=== PATIENT | male | born 1995 | race Caucasian/White ===

== ENCOUNTER 2018-09-18 09:29 | Day surgery (SDC) | payer BC ==
[~2018-09-18] VITALS: Ht 180.3 cm; Wt 84.4 kg
[~2018-09-18 09:29] MED LIST: CETI-36 PO; DOXY-350 PO; LIDOCAINE 1% MDV 20ML VIAL SQ PRN; LIDOCAINE W/EPINEPHRINE 1% 20ML VIAL As Ordered ONE; LR 1,000 ML IV ONE; METHYLENE BLUE 0.5% (5MG/ML) 10 ML AMP (PROVAYBLUE)(Q9968 PER 1MG) As Ordered ONE; OXYMETAZOLINE NASAL SPRAY (AFRIN) As Ordered ONE; PERCOCET PO
[2018-09-18] MEDS ORDERED: MIDAZOLAM INJ 2 MG/2 ML VIAL (J2250) As Ordered ONE (10:55)
[2018-09-18] MEDS ORDERED: SUCCINYLCHOLINE 100 MG/5 ML SYRINGE (J0330) As Ordered ONE (10:55)
[2018-09-18] MEDS ORDERED: ONDANSETRON 4MG/2ML VIAL (J2405) As Ordered ONE (10:55)
[2018-09-18] MEDS ORDERED: fentaNYL 100 MCG/2 ML INJECTION (J3010) As Ordered ONE ×2 (10:55→12:24)
[2018-09-18] MEDS ORDERED: dexameTHASONE 4 MG/ML 1ML VIAL (J1100) As Ordered ONE ×2 (10:55→11:45)
[2018-09-18] MEDS ORDERED: PROPOFOL 200 MG/20 ML VIAL As Ordered ONE (10:55)
[2018-09-18] MEDS ORDERED: ROCURONIUM BROMIDE 50 MG/5 ML VIAL As Ordered ONE (10:55)
[2018-09-18] MEDS ORDERED: LIDOCAINE 2% INJ 100 MG/5 ML SDV (FOR ANES.) As Ordered ONE (10:56)
[2018-09-18] MEDS: fentaNYL 100 MCG/2 ML INJECTION (J3010) IV PRN ×4 (12:24→12:40)
[2018-09-18] MEDS ORDERED: METOCLOPRAMIDE INJ 10MG/2ML VIAL (J2765) IV PRN (12:30)
[2018-09-18] MEDS ORDERED: LR 1,000 ML IV SCH (12:30)
[2018-09-18] MEDS ORDERED: oxyCODONE 5MG TAB PO PRN (12:30)
[2018-09-18] MEDS ORDERED: PROMETHAZINE INJ 25 MG/ML VIAL (J2550) IV PRN (12:30)
[2018-09-18] MEDS ORDERED: PERCOCET 5MG/325MG TAB PO PRN (12:30)
[2018-09-18 14:37] VITALS: BP 121/78
== END 2018-09-18 14:45 | disposition home or self-care (01) ==
LOC: M SDC 09:29
PROVIDERS: ATTEND Specialist
DX: J34.3 Hypertrophy of nasal turbinates (principal)
CPT/HCPCS: 30140; J0330; J1100; J2250; J2405; J2765; J3010; Q9968

== ENCOUNTER 2019-03-28 20:35 | Inpatient (IN) | payer BC ==
[~2019-03-28] VITALS: Ht 180.3 cm; Wt 74.0 kg
[~2019-03-28 20:35] MED LIST changes: -LIDOCAINE 1% MDV 20ML VIAL SQ PRN; -LIDOCAINE W/EPINEPHRINE 1% 20ML VIAL As Ordered ONE; -LR 1,000 ML IV ONE; -METHYLENE BLUE 0.5% (5MG/ML) 10 ML AMP (PROVAYBLUE)(Q9968 PER 1MG) As Ordered ONE; -OXYMETAZOLINE NASAL SPRAY (AFRIN) As Ordered ONE
[2019-03-28] MEDS ORDERED: HYDR50TA70 (20:58)
[2019-03-28] MEDS ORDERED: QUET1TAB7 (20:58)
[2019-03-28] MEDS ORDERED: HYDR50TA70 PO (23:08)
[2019-03-28] MEDS ORDERED: QUET1TAB7 PO (23:08)
[2019-03-29] MEDS ORDERED: MAALOX 30 ML SUSP *UDC PO PRN (00:30)
[2019-03-29] MEDS ORDERED: ACETAMINOPHEN TAB 650MG DOSE (2X325MG) PO PRN (00:30)
[2019-03-29] MEDS ORDERED: hydrOXYzine 50 MG TAB PO PRN (00:30)
[2019-03-29] MEDS ORDERED: MOM 30ML SUSPENSION UDC PO PRN (00:30)
[2019-03-29] MEDS: QUEtiapine FUMARATE 25 MG TAB PO SCH ×2 (04:00→21:22)
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
[2019-03-29] MEDS ORDERED: VENLAFAXINE **XR** 37.5 MG CAPSULE PO ONE (12:30)
[2019-03-29] MEDS ORDERED: QUEtiapine FUMARATE 100 MG TAB PO PRN (12:30)
[2019-03-29 15:55] VITALS: BP 136/72
[2019-03-30 06:45] VITALS: BP 131/78
[2019-03-30] MEDS: VENLAFAXINE **XR** 37.5 MG CAPSULE PO SCH (09:01)
--- NOTE | 2019-03-30 10:35 | MHIPNPDOC ---
[facility] Progress Note Progress Note DATE OF SERVICE: 03/30/19 HISTORY: Per ED- Patient is a 23 -year-old , male, who stated that his primary issue is anxiety that evolves into depression. He went almost two years without issue but since Dec 2018 he has been pursuing treatment without success. 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 PT attempted to utilize [facility] counselor "He is really no good at what he does." Pt found a counselor in [place] but on his second visit he expressed SI and the therapist told him he could not think that or he would go to [facility]. Pt stated he was seen twice at [facility] while at school with one admission and one discharge because they did not have a bed. He admitted to having his father's gun in his hand at one time prior to college, planning suicide- "That was a long time ago." He denies that he reported the event until just recently. Pt and his girlfriend have been dating for 8 months and she is very supportive of pt. Today he shared with her that he wanted to kill himself and had a plan. Pt did not tell his GF the plan and he stated at this time he will not share the plan with anyone. GF encouraged him to present to the ED for help. Pt has been prescribed Seroquel 25 mg recently with the plan to increase to 100 mg- pt stated it caused him muscle aches and interrupted sleep. He was unable to access the doctor at his school as it was their break so he consulted his PCP who declined to be involved with a psychiatric medication. PT stated that upon starting Seroquel he developed AH/VH that typically occurred when he was attempting to sleep but he is not concerned as he understands "it isn't real." Pt seen in his room and states that he "is okay but I was not able to sleep because of the noise." Pt appears tired, anxious, and withdrawn. When asked about if he still has SI he states yes. He was not forthcoming in the ED about a plan but he disclosed to me that he planned to jump off a specific high building that he does not know the name to. Pt expresses that his anxiety has been getting worst the past 4 months and that is when he began to seek help. He stated that the counselor at [facility] "was not helpful at all." Pt states that he went to [facility] twice when he had previously expressed SI and that they had started him on Klonopin- which was helpful but was unable to get refilled, and Effexor- which he was only on for 3 weeks before he could not refill his prescription. He was able to see the psychiatrist at [facility], Dr Mcclendon, who prescribed him Seroquel 75 mg qhs and Hydroxyzine 100 mg tid. He states that Hydroxyzine has not been particularly helpful with his anxiety and if he does take three in a day it makes him very tired. Pt states that the Seroquel has on occasion caused him "auditory and visual hallucinations"- he sees "little people" running around the room but doesn't want to be taken off it b/c it really helps him sleep and is very anxious about not being able to sleep. Recommend restarting Effexor XR as pt would like the try again as never had a full trial of the med and only took for 3wks. Recommended to start abilify 5mg daily for antidepressant augmentation. Recommend starting different medications. Med risk/ benefits discussed. States he was unable to sleep last night and asked for ear plugs. He is willing to try different medications " as long as he has a stable plan and it helps with his anxiety." He is encouraged to attend groups but it is doubtful he will be able to leave his room due to his current level of anxiety. He denies SI/HI, hallucinations, and delusions. Pt feels safe here. VITAL SIGNS: See below. NEW TEST RESULTS:See below. CURRENT MEDICATIONS: See below. MENTAL STATUS EXAMINATION: General Appearance: unkempt, hospital scrubs/clothing Build: thin Demeanor: cooperative Eye Contact: fair Activity: less anxious Behavior: cooperative Speech: clear, normal volume, reg/rate,rhythm,volume Mood: less anxious, less depressed Mood "alright" Affect: constricted, congruent, less anxious Thought Process: logical/linear, associative, depressed Thought Content (Delusions): none reported, denies SI, HI, AVH Thought Content (Other): none reported, preoccupied, obsessional Thought Content (Aggressive): none reported Perception (Hallucinations): none reported Perception (Other): none reported Cognition (Impairment of): none reported Cognition(Intelligence Est.): average Oriented: Awake, Alert, Oriented times three Insight: poor Judgment: Fair Psychosis: Denies DIAGNOSES: Generalized anxiety disorder Panic disorder ASSESSMENT:Pt seen and states that his mood is "ok". States he slept well last night. Endorsed minor stomach upset with start of abilify and effexor xr and encouraged to take them with food as that should improve it. States he's waiting for them to feel more beneficial as thus far doesn't notice anything. He is attending groups and finding them helpful. He appears less anxious today. He denies SI/HI, hallucinations, delusions. Pt feels safe here. MANAGEMENT PLAN: continue plan Effexor xr 37.5mg daily abilify 5mg daily seroquel 75mg qhs TIME SPENT: 30 minutes. Vital Signs Vital Signs Date Time Temp Pulse Resp B/P (MAP) Pulse Ox O2 Delivery O2 Flow Rate FiO2 03/30/19 06:45 98.6 94 12 131/78 (95) Room Air 03/28/19 21:24 100 Current Medications Current Medications Medications (Trade) Dose Ordered Sig/Jamie Route PRN Reason Start Time Stop Time Status Last Admin Dose Admin Acetaminophen (Tylenol Tab) 650 mg Q6HP PRN PO HEADACHE or DISCOMFORT 03/29/19 00:30 Al Hydrox/Mg Hydrox/Simethicone (Mylanta) 30 ml Q4HP PRN PO HEARTBURN/INDIGESTION 03/29/19 00:30 Aripiprazole (AbiLIFY) 5 mg DAILY PO 03/30/19 09:00 03/30/19 09:01 Home Med (Med Rec Complete!) ASDIRECTED XX 03/28/19 23:15 03/28/19 23:11 DC Hydroxyzine HCl (Atarax) 50 mg TID PRN PO ANXIETY 03/29/19 00:30 Cancel Magnesium Hydroxide (Milk Of Magnesia) 30 ml DAILYPRN PRN PO CONSTIPATION 03/29/19 00:30 Quetiapine Fumarate (SEROquel) 75 mg QHS PO 03/28/19 21:00 03/29/19 21:22 Quetiapine Fumarate (SEROquel) 100 mg TIDP PRN PO ANXIETY 03/29/19 12:30 Trazodone HCl (Desyrel) 50 mg QHSP PRN PO INSOMNIA 03/29/19 00:30 Venlafaxine HCl (Effexor Xr) 37.5 mg DAILY PO 03/30/19 09:00 03/30/19 09:01 Allergies Coded Allergies: Cephalosporins (Verified Allergy, Intermediate, HIVES, 09/18/18) Animal Dander (Verified Allergy, Unknown, 09/11/18) ENVIROMENTAL (Verified Allergy, Unknown, 09/11/18) PORFIRIO REA DO Mar 30, 2019 10:35 am
[2019-03-30] MEDS: hydrOXYzine 50 MG TAB PO PRN ×2 (16:09→20:32)
[2019-03-30 16:57] VITALS: BP 126/67
[2019-03-30] MEDS: QUEtiapine FUMARATE 25 MG TAB PO SCH (20:32)
[2019-03-30] MEDS: traZODone 50 MG TAB PO PRN (23:47)
[2019-03-31 06:45] VITALS: BP 133/79
[2019-03-31] MEDS: VENLAFAXINE **XR** 37.5 MG CAPSULE PO SCH (08:04)
--- NOTE | 2019-03-31 10:12 | MHIPNPDOC ---
[facility] Progress Note Progress Note DATE OF SERVICE: 03/31/19 HISTORY: Per ED- Patient is a 23 -year-old , male, who stated that his primary issue is anxiety that evolves into depression. He went almost two years without issue but since Dec 2018 he has been pursuing treatment without success. 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 PT attempted to utilize [facility] counselor "He is really no good at what he does." Pt found a counselor in [place] but on his second visit he expressed SI and the therapist told him he could not think that or he would go to [facility]. Pt stated he was seen twice at [facility] while at school with one admission and one discharge because they did not have a bed. He admitted to having his father's gun in his hand at one time prior to college, planning suicide- "That was a long time ago." He denies that he reported the event until just recently. Pt and his girlfriend have been dating for 8 months and she is very supportive of pt. Today he shared with her that he wanted to kill himself and had a plan. Pt did not tell his GF the plan and he stated at this time he will not share the plan with anyone. GF encouraged him to present to the ED for help. Pt has been prescribed Seroquel 25 mg recently with the plan to increase to 100 mg- pt stated it caused him muscle aches and interrupted sleep. He was unable to access the doctor at his school as it was their break so he consulted his PCP who declined to be involved with a psychiatric medication. PT stated that upon starting Seroquel he developed AH/VH that typically occurred when he was attempting to sleep but he is not concerned as he understands "it isn't real." Pt seen in his room and states that he "is okay but I was not able to sleep because of the noise." Pt appears tired, anxious, and withdrawn. When asked about if he still has SI he states yes. He was not forthcoming in the ED about a plan but he disclosed to me that he planned to jump off a specific high building that he does not know the name to. Pt expresses that his anxiety has been getting worst the past 4 months and that is when he began to seek help. He stated that the counselor at [facility] "was not helpful at all." Pt states that he went to [facility] twice when he had previously expressed SI and that they had started him on Klonopin- which was helpful but was unable to get refilled, and Effexor- which he was only on for 3 weeks before he could not refill his prescription. He was able to see the psychiatrist at [facility], Dr Mcclendon, who prescribed him Seroquel 75 mg qhs and Hydroxyzine 100 mg tid. He states that Hydroxyzine has not been particularly helpful with his anxiety and if he does take three in a day it makes him very tired. Pt states that the Seroquel has on occasion caused him "auditory and visual hallucinations"- he sees "little people" running around the room but doesn't want to be taken off it b/c it really helps him sleep and is very anxious about not being able to sleep. Recommend restarting Effexor XR as pt would like the try again as never had a full trial of the med and only took for 3wks. Recommended to start abilify 5mg daily for antidepressant augmentation. Recommend starting different medications. Med risk/ benefits discussed. States he was unable to sleep last night and asked for ear plugs. He is willing to try different medications " as long as he has a stable plan and it helps with his anxiety." He is encouraged to attend groups but it is doubtful he will be able to leave his room due to his current level of anxiety. He denies SI/HI, hallucinations, and delusions. Pt feels safe here. VITAL SIGNS: See below. NEW TEST RESULTS:See below. CURRENT MEDICATIONS: See below. MENTAL STATUS EXAMINATION: General Appearance: unkempt, hospital scrubs/clothing Build: thin Demeanor: cooperative Eye Contact: fair Activity: less anxious Behavior: cooperative Speech: clear, normal volume, reg/rate,rhythm,volume Mood: less anxious, less depressed Mood "alright" Affect: less constricted, congruent, less anxious Thought Process: logical/linear, associative/intrusive thoughts, less depressed Thought Content (Delusions): none reported, denies SI, HI, AVH Thought Content (Other): none reported, preoccupied, obsessional Thought Content (Aggressive): none reported Perception (Hallucinations): none reported Perception (Other): none reported Cognition (Impairment of): none reported Cognition(Intelligence Est.): average Oriented: Awake, Alert, Oriented times three Insight: poor Judgment: Fair Psychosis: Denies DIAGNOSES: Generalized anxiety disorder Panic disorder ASSESSMENT:Pt seen and states that his mood is "alright". States he slept well last night. States he tolerating his abilify and effexor xr better when taken with food and is waiting for them to feel more beneficial as thus far only notices minor improvement in mood and anxiety. He is attending groups and finding them helpful. He appears less anxious today. Continues to endorse intrusive thoughts that are improving with groups attendance. He is social on the milieu with his peers. Per nursing pt appears to be improving overall. He denies SI/HI, hallucinations, delusions. Pt feels safe here. MANAGEMENT PLAN: continue plan Effexor xr 37.5mg daily abilify 5mg daily seroquel 75mg qhs TIME SPENT: 30 minutes. Vital Signs Vital Signs Date Time Temp Pulse Resp B/P (MAP) Pulse Ox O2 Delivery O2 Flow Rate FiO2 03/31/19 06:45 98.3 84 12 133/79 (97) Room Air 03/28/19 21:24 100 Current Medications Current Medications Medications (Trade) Dose Ordered Sig/Jamie Route PRN Reason Start Time Stop Time Status Last Admin Dose Admin Acetaminophen (Tylenol Tab) 650 mg Q6HP PRN PO HEADACHE or DISCOMFORT 03/29/19 00:30 Al Hydrox/Mg Hydrox/Simethicone (Mylanta) 30 ml Q4HP PRN PO HEARTBURN/INDIGESTION 03/29/19 00:30 Aripiprazole (AbiLIFY) 5 mg DAILY PO 03/30/19 09:00 03/31/19 08:03 Home Med (Med Rec Complete!) ASDIRECTED XX 03/28/19 23:15 03/28/19 23:11 DC Hydroxyzine HCl (Atarax) 50 mg Q4HP PRN PO ANXIETY 03/30/19 16:00 03/30/19 20:32 Hydroxyzine HCl (Atarax) 50 mg TID PRN PO ANXIETY 03/29/19 00:30 Cancel Magnesium Hydroxide (Milk Of Magnesia) 30 ml DAILYPRN PRN PO CONSTIPATION 03/29/19 00:30 Quetiapine Fumarate (SEROquel) 75 mg QHS PO 03/28/19 21:00 03/30/19 20:32 Quetiapine Fumarate (SEROquel) 100 mg TIDP PRN PO ANXIETY 03/29/19 12:30 Trazodone HCl (Desyrel) 50 mg QHSP PRN PO INSOMNIA 03/29/19 00:30 03/30/19 23:47 Venlafaxine HCl (Effexor Xr) 37.5 mg DAILY PO 03/30/19 09:00 03/31/19 08:04 Allergies Coded Allergies: Cephalosporins (Verified Allergy, Intermediate, HIVES, 09/18/18) Animal Dander (Verified Allergy, Unknown, 09/11/18) ENVIROMENTAL (Verified Allergy, Unknown, 09/11/18) PORFIRIO REA DO Mar 31, 2019 10:12
[2019-03-31 16:20] VITALS: BP 129/63
[2019-03-31] MEDS: hydrOXYzine 50 MG TAB PO PRN (17:03)
[2019-03-31] MEDS: QUEtiapine FUMARATE 25 MG TAB PO SCH (20:56)
[2019-04-01 06:51] VITALS: BP 132/83
[2019-04-01] MEDS: VENLAFAXINE **XR** 37.5 MG CAPSULE PO SCH (08:52)
[2019-04-01] MEDS ORDERED: QUEtiapine FUMARATE 25 MG TAB PO PRN (10:00)
--- NOTE | 2019-04-01 10:02 | MHIPNPDOC ---
[facility] Progress Note Progress Note DATE OF SERVICE: 04/01/19 HISTORY: Per ED- Patient is a 23 -year-old , male, who stated that his primary issue is anxiety that evolves into depression. He went almost two years without issue but since Dec 2018 he has been pursuing treatment without success. 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 PT attempted to utilize [facility] counselor "He is really no good at what he does." Pt found a counselor in [place] but on his second visit he expressed SI and the therapist told him he could not think that or he would go to [facility]. Pt stated he was seen twice at [facility] while at school with one admission and one discharge because they did not have a bed. He admitted to having his father's gun in his hand at one time prior to college, planning suicide- "That was a long time ago." He denies that he reported the event until just recently. Pt and his girlfriend have been dating for 8 months and she is very supportive of pt. Today he shared with her that he wanted to kill himself and had a plan. Pt did not tell his GF the plan and he stated at this time he will not share the plan with anyone. GF encouraged him to present to the ED for help. Pt has been prescribed Seroquel 25 mg recently with the plan to increase to 100 mg- pt stated it caused him muscle aches and interrupted sleep. He was unable to access the doctor at his school as it was their break so he consulted his PCP who declined to be involved with a psychiatric medication. PT stated that upon starting Seroquel he developed AH/VH that typically occurred when he was attempting to sleep but he is not concerned as he understands "it isn't real." Pt seen in his room and states that he "is okay but I was not able to sleep because of the noise." Pt appears tired, anxious, and withdrawn. When asked about if he still has SI he states yes. He was not forthcoming in the ED about a plan but he disclosed to me that he planned to jump off a specific high building that he does not know the name to. Pt expresses that his anxiety has been getting worst the past 4 months and that is when he began to seek help. He stated that the counselor at [facility] "was not helpful at all." Pt states that he went to [facility] twice when he had previously expressed SI and that they had started him on Klonopin- which was helpful but was unable to get refilled, and Effexor- which he was only on for 3 weeks before he could not refill his prescription. He was able to see the psychiatrist at [facility], Dr Mcclendon, who prescribed him Seroquel 75 mg qhs and Hydroxyzine 100 mg tid. He states that Hydroxyzine has not been particularly helpful with his anxiety and if he does take three in a day it makes him very tired. Pt states that the Seroquel has on occasion caused him "auditory and visual hallucinations"- he sees "little people" running around the room but doesn't want to be taken off it b/c it really helps him sleep and is very anxious about not being able to sleep. Recommend restarting Effexor XR as pt would like the try again as never had a full trial of the med and only took for 3wks. Recommended to start abilify 5mg daily for antidepressant augmentation. Recommend starting different medications. Med risk/ benefits discussed. States he was unable to sleep last night and asked for ear plugs. He is willing to try different medications " as long as he has a stable plan and it helps with his anxiety." He is encouraged to attend groups but it is doubtful he will be able to leave his room due to his current level of anxiety. He denies SI/HI, hallucinations, and delusions. Pt feels safe here. VITAL SIGNS: See below. NEW TEST RESULTS:See below. CURRENT MEDICATIONS: See below. MENTAL STATUS EXAMINATION: General Appearance: unkempt, hospital scrubs/clothing Build: thin Demeanor: cooperative Eye Contact: fair Activity: less anxious Behavior: cooperative Speech: clear, normal volume, reg/rate,rhythm,volume Mood: less anxious, less depressed Mood "I fear I'm going to get really sick" Affect: less constricted, congruent, less anxious Thought Process: logical/linear, associative/intrusive thoughts, less depressed Thought Content (Delusions): none reported, denies SI, HI, AVH Thought Content (Other): none reported, preoccupied, obsessional Thought Content (Aggressive): none reported Perception (Hallucinations): none reported Perception (Other): none reported Cognition (Impairment of): none reported Cognition(Intelligence Est.): average Oriented: Awake, Alert, Oriented times three Insight: poor Judgment: Fair Psychosis: Denies DIAGNOSES: Generalized anxiety disorder Panic disorder ASSESSMENT:Pt seen and states that his mood is "alright". States he slept well last night. States he tolerating his abilify and effexor xr but feels abilify is causing him stomach aches and would prefer to take it at night. Continues to endorse fear of harming himself due to anxiety which he continues to endorse due to concern about his health and relationships. States effexor xr is starting to be beneficial. He is attending groups and finding them helpful. He continues to indorse irrational thoughts that he knows are not rational that he'll get a serious illness.. Continues to endorse intrusive thoughts that are improving mildly with groups attendance. He is social on the milieu with his peers. Per nursing pt appears to be improving overall. He denies SI/HI, hallucinations, delusions. Pt feels safe here. MANAGEMENT PLAN: continue plan Effexor xr 37.5mg daily abilify 5mg qhs seroquel 75mg qhs prn insomnia trazodone 50mg qhs prn insomnia vistaril 100mg p6hr prn anxiety TIME SPENT: 30 minutes. Vital Signs Vital Signs Date Time Temp Pulse Resp B/P (MAP) Pulse Ox O2 Delivery O2 Flow Rate FiO2 04/01/19 06:51 98.1 90 12 132/83 (99) Room Air 03/28/19 21:24 100 Current Medications Current Medications Medications (Trade) Dose Ordered Sig/Jamie Route PRN Reason Start Time Stop Time Status Last Admin Dose Admin Acetaminophen (Tylenol Tab) 650 mg Q6HP PRN PO HEADACHE or DISCOMFORT 03/29/19 00:30 Al Hydrox/Mg Hydrox/Simethicone (Mylanta) 30 ml Q4HP PRN PO HEARTBURN/INDIGESTION 03/29/19 00:30 Aripiprazole (AbiLIFY) 5 mg DAILY PO 03/30/19 09:00 04/01/19 08:52 Home Med (Med Rec Complete!) ASDIRECTED XX 03/28/19 23:15 03/28/19 23:11 DC Hydroxyzine HCl (Atarax) 50 mg Q4HP PRN PO ANXIETY 03/30/19 16:00 03/31/19 17:03 Hydroxyzine HCl (Atarax) 50 mg TID PRN PO ANXIETY 03/29/19 00:30 Cancel Magnesium Hydroxide (Milk Of Magnesia) 30 ml DAILYPRN PRN PO CONSTIPATION 03/29/19 00:30 Quetiapine Fumarate (SEROquel) 75 mg QHS PO 03/28/19 21:00 03/31/19 20:56 Quetiapine Fumarate (SEROquel) 100 mg TIDP PRN PO ANXIETY 03/29/19 12:30 Trazodone HCl (Desyrel) 50 mg QHSP PRN PO INSOMNIA 03/29/19 00:30 03/30/19 23:47 Venlafaxine HCl (Effexor Xr) 37.5 mg DAILY PO 03/30/19 09:00 04/01/19 08:52 Allergies Coded Allergies: Cephalosporins (Verified Allergy, Intermediate, HIVES, 09/18/18) Animal Dander (Verified Allergy, Unknown, 09/11/18) ENVIROMENTAL (Verified Allergy, Unknown, 09/11/18) PORFIRIO REA DO Apr 01, 2019 9:36 am
[2019-04-01 17:05] VITALS: BP 128/72
[2019-04-01] MEDS: traZODone 50 MG TAB PO PRN (20:56)
[2019-04-02] MEDS: hydrOXYzine 50 MG TAB PO PRN (04:22)
[2019-04-02 07:10] VITALS: BP 140/67
[2019-04-02] MEDS: VENLAFAXINE **XR** 37.5 MG CAPSULE PO SCH (09:22)
--- NOTE | 2019-04-02 09:33 | MHIPNPDOC ---
[facility] Progress Note Progress Note DATE OF SERVICE: 04/02/19 HISTORY: Per ED- Patient is a 23 -year-old , male, who stated that his primary issue is anxiety that evolves into depression. He went almost two years without issue but since Dec 2018 he has been pursuing treatment without success. 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 PT attempted to utilize [facility] counselor "He is really no good at what he does." Pt found a counselor in [place] but on his second visit he expressed SI and the therapist told him he could not think that or he would go to [facility]. Pt stated he was seen twice at [facility] while at school with one admission and one discharge because they did not have a bed. He admitted to having his father's gun in his hand at one time prior to college, planning suicide- "That was a long time ago." He denies that he reported the event until just recently. Pt and his girlfriend have been dating for 8 months and she is very supportive of pt. Today he shared with her that he wanted to kill himself and had a plan. Pt did not tell his GF the plan and he stated at this time he will not share the plan with anyone. GF encouraged him to present to the ED for help. Pt has been prescribed Seroquel 25 mg recently with the plan to increase to 100 mg- pt stated it caused him muscle aches and interrupted sleep. He was unable to access the doctor at his school as it was their break so he consulted his PCP who declined to be involved with a psychiatric medication. PT stated that upon starting Seroquel he developed AH/VH that typically occurred when he was attempting to sleep but he is not concerned as he understands "it isn't real." Pt seen in his room and states that he "is okay but I was not able to sleep because of the noise." Pt appears tired, anxious, and withdrawn. When asked about if he still has SI he states yes. He was not forthcoming in the ED about a plan but he disclosed to me that he planned to jump off a specific high building that he does not know the name to. Pt expresses that his anxiety has been getting worst the past 4 months and that is when he began to seek help. He stated that the counselor at [facility] "was not helpful at all." Pt states that he went to [facility] twice when he had previously expressed SI and that they had started him on Klonopin- which was helpful but was unable to get refilled, and Effexor- which he was only on for 3 weeks before he could not refill his prescription. He was able to see the psychiatrist at [facility], Dr Mcclendon, who prescribed him Seroquel 75 mg qhs and Hydroxyzine 100 mg tid. He states that Hydroxyzine has not been particularly helpful with his anxiety and if he does take three in a day it makes him very tired. Pt states that the Seroquel has on occasion caused him "auditory and visual hallucinations"- he sees "little people" running around the room but doesn't want to be taken off it b/c it really helps him sleep and is very anxious about not being able to sleep. Recommend restarting Effexor XR as pt would like the try again as never had a full trial of the med and only took for 3wks. Recommended to start abilify 5mg daily for antidepressant augmentation. Recommend starting different medications. Med risk/ benefits discussed. States he was unable to sleep last night and asked for ear plugs. He is willing to try different medications " as long as he has a stable plan and it helps with his anxiety." He is encouraged to attend groups but it is doubtful he will be able to leave his room due to his current level of anxiety. He denies SI/HI, hallucinations, and delusions. Pt feels safe here. VITAL SIGNS: See below. NEW TEST RESULTS:See below. CURRENT MEDICATIONS: See below. MENTAL STATUS EXAMINATION: General Appearance: unkempt, hospital scrubs/clothing Build: thin Demeanor: cooperative, mildly withdrawn Eye Contact: fair Activity: less anxious Behavior: cooperative Speech: clear, normal volume, reg/rate,rhythm,volume Mood: less anxious, less depressed Mood "tired" Affect: less constricted, congruent, less anxious Thought Process: logical/linear, improving associative/intrusive thoughts, less depressed Thought Content (Delusions): none reported, denies SI, HI, AVH Thought Content (Other): none reported, improving preoccupation and obsessional thoughts Thought Content (Aggressive): none reported Perception (Hallucinations): none reported Perception (Other): none reported Cognition (Impairment of): none reported Cognition(Intelligence Est.): average Oriented: Awake, Alert, Oriented times three Insight: poor Judgment: Fair Psychosis: Denies DIAGNOSES: Generalized anxiety disorder Panic disorder ASSESSMENT:Pt seen and states that his mood is "tired". States he slept he took trazodone last night but that it wasn't very helpful and is agreeable to increasing it today. States he tolerating his abilify now that it's at night and effexor xr state stomach aches are gone. Denies fear of harming himself today b/c "I feel much more confident now that he has set up [facility] in [place]". States effexor xr is starting to be beneficial and is agreeable to increasing it today. He is attending groups and finding them helpful. He states his irrational thoughts are easier to dismiss them although they are still present. States intrusive thoughts are improving as easier to push away with groups attendance. He is social on the milieu with his peers. Per nursing pt appears to be improving overall. He denies SI/HI, hallucinations, delusions. Pt feels safe here. MANAGEMENT PLAN: continue plan. increase trazodone for insomnia. increased effexor xr 75mg daily Effexor xr 75mg daily abilify 5mg qhs seroquel 75mg qhs prn insomnia trazodone 100mg qhs prn insomnia vistaril 100mg p6hr prn anxiety TIME SPENT: 30 minutes. Vital Signs Vital Signs Date Time Temp Pulse Resp B/P (MAP) Pulse Ox O2 Delivery O2 Flow Rate FiO2 04/02/19 07:10 98.2 65 18 140/67 (91) 04/01/19 06:51 Room Air 03/28/19 21:24 100 Current Medications Current Medications Medications (Trade) Dose Ordered Sig/Jamie Route PRN Reason Start Time Stop Time Status Last Admin Dose Admin Acetaminophen (Tylenol Tab) 650 mg Q6HP PRN PO HEADACHE or DISCOMFORT 03/29/19 00:30 Al Hydrox/Mg Hydrox/Simethicone (Mylanta) 30 ml Q4HP PRN PO HEARTBURN/INDIGESTION 03/29/19 00:30 Aripiprazole (AbiLIFY) 5 mg DAILY PO 03/30/19 09:00 04/01/19 08:52 Home Med (Med Rec Complete!) ASDIRECTED XX 03/28/19 23:15 03/28/19 23:11 DC Hydroxyzine HCl (Atarax) 50 mg Q4HP PRN PO ANXIETY 03/30/19 16:00 04/01/19 10:01 DC 03/31/19 17:03 Hydroxyzine HCl (Atarax) 50 mg TID PRN PO ANXIETY 03/29/19 00:30 Cancel Hydroxyzine HCl (Atarax) 100 mg Q6HP PRN PO ANXIETY 04/01/19 10:00 04/02/19 04:22 Magnesium Hydroxide (Milk Of Magnesia) 30 ml DAILYPRN PRN PO CONSTIPATION 03/29/19 00:30 Quetiapine Fumarate (SEROquel) 75 mg QHS PO 03/28/19 21:00 04/01/19 10:01 DC 03/31/19 20:56 Quetiapine Fumarate (SEROquel) 75 mg QHS PRN PO INSOMNIA 04/01/19 10:00 Quetiapine Fumarate (SEROquel) 100 mg TIDP PRN PO ANXIETY 03/29/19 12:30 Cancel Trazodone HCl (Desyrel) 50 mg QHSP PRN PO INSOMNIA 03/29/19 00:30 04/01/19 20:56 Venlafaxine HCl (Effexor Xr) 37.5 mg DAILY PO 03/30/19 09:00 04/01/19 08:52 Allergies Coded Allergies: Cephalosporins (Verified Allergy, Intermediate, HIVES, 09/18/18) Animal Dander (Verified Allergy, Unknown, 09/11/18) ENVIROMENTAL (Verified Allergy, Unknown, 09/11/18) PORFIRIO REA DO Apr 02, 2019 9:33 am
[2019-04-02] MEDS ORDERED: VENLAFAXINE **XR** 37.5 MG CAPSULE PO ONE (09:45)
[2019-04-02] MEDS ORDERED: traZODone 100 MG TAB PO PRN (09:45)
[2019-04-02 15:50] VITALS: BP 129/79
[2019-04-03 06:39] VITALS: BP 108/61
[2019-04-03] MEDS: VENLAFAXINE **XR** 75MG CAPSULE PO SCH (07:46)
--- NOTE | 2019-04-03 09:03 | MHIPNPDOC ---
[facility] Progress Note Progress Note DATE OF SERVICE: 04/03/19 HISTORY: Per ED- Patient is a 23 -year-old , male, who stated that his primary issue is anxiety that evolves into depression. He went almost two years without issue but since Dec 2018 he has been pursuing treatment without success. 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 PT attempted to utilize [facility] counselor "He is really no good at what he does." Pt found a counselor in [place] but on his second visit he expressed SI and the therapist told him he could not think that or he would go to [facility]. Pt stated he was seen twice at [facility] while at school with one admission and one discharge because they did not have a bed. He admitted to having his father's gun in his hand at one time prior to college, planning suicide- "That was a long time ago." He denies that he reported the event until just recently. Pt and his girlfriend have been dating for 8 months and she is very supportive of pt. Today he shared with her that he wanted to kill himself and had a plan. Pt did not tell his GF the plan and he stated at this time he will not share the plan with anyone. GF encouraged him to present to the ED for help. Pt has been prescribed Seroquel 25 mg recently with the plan to increase to 100 mg- pt stated it caused him muscle aches and interrupted sleep. He was unable to access the doctor at his school as it was their break so he consulted his PCP who declined to be involved with a psychiatric medication. PT stated that upon starting Seroquel he developed AH/VH that typically occurred when he was attempting to sleep but he is not concerned as he understands "it isn't real." Pt seen in his room and states that he "is okay but I was not able to sleep because of the noise." Pt appears tired, anxious, and withdrawn. When asked about if he still has SI he states yes. He was not forthcoming in the ED about a plan but he disclosed to me that he planned to jump off a specific high building that he does not know the name to. Pt expresses that his anxiety has been getting worst the past 4 months and that is when he began to seek help. He stated that the counselor at [facility] "was not helpful at all." Pt states that he went to [facility] twice when he had previously expressed SI and that they had started him on Klonopin- which was helpful but was unable to get refilled, and Effexor- which he was only on for 3 weeks before he could not refill his prescription. He was able to see the psychiatrist at [facility], Dr Mcclendon, who prescribed him Seroquel 75 mg qhs and Hydroxyzine 100 mg tid. He states that Hydroxyzine has not been particularly helpful with his anxiety and if he does take three in a day it makes him very tired. Pt states that the Seroquel has on occasion caused him "auditory and visual hallucinations"- he sees "little people" running around the room but doesn't want to be taken off it b/c it really helps him sleep and is very anxious about not being able to sleep. Recommend restarting Effexor XR as pt would like the try again as never had a full trial of the med and only took for 3wks. Recommended to start abilify 5mg daily for antidepressant augmentation. Recommend starting different medications. Med risk/ benefits discussed. States he was unable to sleep last night and asked for ear plugs. He is willing to try different medications " as long as he has a stable plan and it helps with his anxiety." He is encouraged to attend groups but it is doubtful he will be able to leave his room due to his current level of anxiety. He denies SI/HI, hallucinations, and delusions. Pt feels safe here. VITAL SIGNS: See below. NEW TEST RESULTS:See below. CURRENT MEDICATIONS: See below. MENTAL STATUS EXAMINATION: General Appearance: unkempt, hospital scrubs/clothing Build: thin Demeanor: cooperative, mildly withdrawn Eye Contact: fair Activity: less anxious Behavior: cooperative Speech: clear, normal volume, reg/rate,rhythm,volume Mood: less anxious, less depressed Mood "very tired" Affect: less constricted, congruent, less anxious Thought Process: logical/linear, improving associative/intrusive thoughts, less depressed Thought Content (Delusions): none reported, denies SI, HI, AVH Thought Content (Other): none reported, improving preoccupation and obsessional thoughts Thought Content (Aggressive): none reported Perception (Hallucinations): none reported Perception (Other): none reported Cognition (Impairment of): none reported Cognition(Intelligence Est.): average Oriented: Awake, Alert, Oriented times three Insight: poor Judgment: Fair Psychosis: Denies DIAGNOSES: Generalized anxiety disorder Panic disorder ASSESSMENT:Pt seen and states that his mood is "very tired" after being moved to a room with a roommate as states he is a light sleeper and anytime his roommate moved he would wake up. States he slept he took increased trazodone last night but it wasn't helpful regarding him staying asleep. States he would like to try remeron for insomnia after discussed medication for sleep with pt to help him stay asleep. States he tolerating his abilify now that it's at night and effexor xr state stomach aches are gone. Denies fear of harming himself still after PHP set up in [place] upon d/c. States effexor xr is still starting to be beneficial and is agreeable even after increase yesterday. He is attending groups and finding them helpful. Continues to state his irrational thoughts are easier to dismiss although they are still present. States intrusive thoughts are improving as easier to push away with group attendance. He is social on the milieu with his peers. Per nursing pt appears to be improving overall. He denies SI/HI, hallucinations, delusions. Pt feels safe here. MANAGEMENT PLAN: continue plan. remeron for insomnia, d/c seroquel. increased effexor xr 75mg daily Effexor xr 75mg daily abilify 5mg qhs remeron 15mg qhs trazodone 100mg qhs prn insomnia vistaril 100mg p6hr prn anxiety TIME SPENT: 30 minutes. Vital Signs Vital Signs Date Time Temp Pulse Resp B/P (MAP) Pulse Ox O2 Delivery O2 Flow Rate FiO2 04/03/19 06:39 98.1 78 12 108/61 (77) 04/01/19 06:51 Room Air 03/28/19 21:24 100 Current Medications Current Medications Medications (Trade) Dose Ordered Sig/Jamie Route PRN Reason Start Time Stop Time Status Last Admin Dose Admin Acetaminophen (Tylenol Tab) 650 mg Q6HP PRN PO HEADACHE or DISCOMFORT 03/29/19 00:30 Al Hydrox/Mg Hydrox/Simethicone (Mylanta) 30 ml Q4HP PRN PO HEARTBURN/INDIGESTION 03/29/19 00:30 Aripiprazole (AbiLIFY) 5 mg DAILY PO 03/30/19 09:00 04/02/19 10:25 DC 04/01/19 08:52 Aripiprazole (AbiLIFY) 5 mg QHS PO 04/02/19 21:00 04/02/19 21:43 Home Med (Med Rec Complete!) ASDIRECTED XX 03/28/19 23:15 03/28/19 23:11 DC Hydroxyzine HCl (Atarax) 50 mg Q4HP PRN PO ANXIETY 03/30/19 16:00 04/01/19 10:01 DC 03/31/19 17:03 Hydroxyzine HCl (Atarax) 50 mg TID PRN PO ANXIETY 03/29/19 00:30 Cancel Hydroxyzine HCl (Atarax) 100 mg Q6HP PRN PO ANXIETY 04/01/19 10:00 04/02/19 04:22 Magnesium Hydroxide (Milk Of Magnesia) 30 ml DAILYPRN PRN PO CONSTIPATION 03/29/19 00:30 Quetiapine Fumarate (SEROquel) 75 mg QHS PO 03/28/19 21:00 04/01/19 10:01 DC 03/31/19 20:56 Quetiapine Fumarate (SEROquel) 75 mg QHS PRN PO INSOMNIA 04/01/19 10:00 Quetiapine Fumarate (SEROquel) 100 mg TIDP PRN PO ANXIETY 03/29/19 12:30 Cancel Trazodone HCl (Desyrel) 50 mg QHSP PRN PO INSOMNIA 03/29/19 00:30 04/02/19 09:33 DC 04/01/19 20:56 Trazodone HCl (Desyrel) 100 mg QHSP PRN PO INSOMNIA 04/02/19 09:45 04/02/19 21:43 Venlafaxine HCl (Effexor Xr) 37.5 mg DAILY PO 03/30/19 09:00 04/02/19 09:33 DC 04/02/19 09:22 Venlafaxine HCl (Effexor Xr) 75 mg DAILY PO 04/03/19 09:00 04/03/19 07:46 Allergies Coded Allergies: Cephalosporins (Verified Allergy, Intermediate, HIVES, 09/18/18) Animal Dander (Verified Allergy, Unknown, 09/11/18) ENVIROMENTAL (Verified Allergy, Unknown, 09/11/18) PORFIRIO REA DO Apr 03, 2019 8:48 am
[2019-04-03 17:19] VITALS: BP 108/52
[2019-04-03] MEDS ORDERED: MIRTAZAPINE 15 MG TAB PO SCH (21:00)
[2019-04-04] MEDS: hydrOXYzine 50 MG TAB PO PRN (02:21)
[2019-04-04 06:03] VITALS: BP 113/64
[2019-04-04] MEDS: VENLAFAXINE **XR** 75MG CAPSULE PO SCH (08:06)
[2019-04-04] MEDS ORDERED: TRAZ-257 PO (09:16)
[2019-04-04] MEDS ORDERED: ABIL1TAB11 PO (09:16)
[2019-04-04] MEDS ORDERED: VENL75CA47 PO (09:16)
[2019-04-04] MEDS ORDERED: HYDR50TA70 PO (09:16)
[2019-04-04] MEDS ORDERED: REME15TA PO (09:16)
--- NOTE | 2019-04-04 09:17 | MHDSPDOC ---
[facility] Discharge Summary Discharge Summary DATE OF ADMISSION: Mar 29, 2019 at 12:23 am DATE OF DISCHARGE: Apr 04, 2019 DISCHARGE DIAGNOSES: Generalized anxiety disorder Panic disorder REASON FOR ADMISSION: Patient is a 23 -year-old , male, who stated that his primary issue is anxiety that evolves into depression. He went almost two y ears without issue but since Dec 2018 he has been pursuing treatment without success. 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 PT attempted to utilize [facility] counselor "He is really no good at what he does." Pt found a counselor in [place] but on his second visit he expressed SI and the therapist told him he could not think that or he would go to [facility]. Pt stated he was seen twice at [facility] while at school with one admission and one discharge because they did not have a bed. He admitted to having his father's gun in his hand at one time prior to college, planning suicide- "That was a long time ago." He denies that he reported the event until just recently. Pt and his girlfriend have been dating for 8 months and she is very supportive of pt. Today he shared with her that he wanted to kill himself and had a plan. Pt did not tell his GF the plan and he stated at this time he will not share the plan with anyone. GF encouraged him to present to the ED for help. Pt has been prescribed Seroquel 25 mg recently with the plan to increase to 100 mg- pt stated it caused him muscle aches and interrupted sleep. He was unable to access the doctor at his school as it was their break so he consulted his PCP who declined to be involved with a psychiatric medication. PT stated that upon starting Seroquel he developed AH/VH that typically occurred when he was attempting to sleep but he is not concerned as he understands "it isn't real." Pt seen in his room and states that he "is okay but I was not able to sleep because of the noise." Pt appears tired, anxious, and withdrawn. When asked about if he still has SI he states yes. He was not forthcoming in the ED about a plan but he disclosed to me that he planned to jump off a specific high building that he does not know the name to. Pt expresses that his anxiety has been getting worst the past 4 months and that is when he began to seek help. He stated that the counselor at [facility] "was not helpful at all." Pt states that he went to [facility] twice when he had previously expressed SI and that they had started him on Klonopin- which was helpful but was unable to get refilled, and Effexor- which he was only on for 3 weeks before he could not refill his prescription. He was able to see the psychiatrist at [facility], Dr Mcclendon, who prescribed him Seroquel 75 mg qhs and Hydroxyzine 100 mg tid. He states that Hydroxyzine has not been particularly helpful with his anxiety and if he does take three in a day it makes him very tired. Pt states that the Seroquel has on occasion caused him "auditory and visual hallucinations"- he sees "little people" running around the room but doesn't want to be taken off it b/c it really helps him sleep and is very anxious about not being able to sleep. Recommend restarting Effexor XR as pt would like the try again as never had a full trial of the med and only took for 3wks. Recommended to start abilify 5mg daily for antidepressant augmentation. Recommend starting different medications. Med risk/ benefits discussed. States he was unable to sleep last night and asked for ear plugs. He is willing to try different medications " as long as he has a stable plan and it helps with his anxiety." He is encouraged to attend groups but it is doubtful he will be able to leave his room due to his current level of anxiety. He denies SI/HI, hallucinations, and delusions. Pt feels safe here. CONSULTANTS INVOLVED: none TREATMENT AND PROGRESS ON THE UNIT : Pt was admitted to [facility], seen for psychiatric assessment and started on effexor xr increased to 75mg daily and abilify 5mg qhs, and remeron 15mg qhs for sleep. He was provided vistaril 100mg tid prn anxiety and trazodone 100mg qhs prn insomnia. Pt found his medications beneficial and tolerated them well. His mood, anxiety, and intrusive thoughts improved with treatment. He attended groups daily during his stay. His symptoms improved with treatment. On day of discharge he denied depression, anxiety, insomnia, SI/HI, hallucinations, delusions. He was discharged home with follow-up at [facility] in [place]. He felt safe for discharge. DISCHARGE ASSESSMENT: Pt seen and states that his mood is "good" and he's looking forward to [facility] [place] and following-up at [facility] in [place] tomorrow. States he slept well with remeron last night and is tolerating it well. States he tolerating his abilify now that it's at night and effexor xr as his stomach aches are gone. Denies fear of harming himself still after [facility] set up in [place] upon d/c. States effexor xr is beneficial and he's tolerating it well. He is attending groups and finding them helpful. Continues to state his irrational and intrusive thoughts are easier to dismiss and are greatly improved from admission. He is social on the milieu with his peers. Per nursing pt appears to be improving overall. He denies depression, anxiety, insomnia, SI/HI, hallucinations, delusions. Pt feels safe to d/c home today. MENTAL STATUS EXAMINATION ON DISCHARGE: General Appearance: clean, hospital scrubs/clothing Build: thin Demeanor: cooperative Eye Contact: good Activity: average Behavior: cooperative Speech: clear, normal volume, reg/rate,rhythm,volume Mood: euthymic, full range Mood "good" Affect: full range, congruent Thought Process: logical/linear Thought Content (Delusions): none reported, denies SI, HI, AVH Thought Content (Other): none reported Thought Content (Aggressive): none reported Perception (Hallucinations): none reported Perception (Other): none reported Cognition (Impairment of): none reported Cognition(Intelligence Est.): average Oriented: Awake, Alert, Oriented times three Insight: good Judgment: good Psychosis: Denies MEDICATIONS ON DISCHARGE: Effexor xr 75mg daily abilify 5mg qhs remeron 15mg qhs trazodone 100mg qhs prn insomnia vistaril 100mg tid prn anxiety PLAN/FOLLOWUP ARRANGEMENTS: D/c home with follow-up at [facility] in [place]. The amount of time spent in the coordination of care for this patient was approximately 30 minutes. Vital Signs/I&Os Vital Signs Date Time Temp Pulse Resp B/P (MAP) Pulse Ox O2 Delivery O2 Flow Rate FiO2 04/04/19 06:03 97.0 93 18 113/64 (80) 04/01/19 06:51 Room Air Medications Scheduled Quetiapine Fumarate (Quetiapine Fumarate) 25 Mg Tablet, 75 MG PO QHS, (Reported) Scheduled PRN Hydroxyzine HCl (Hydroxyzine HCl) 50 Mg Tablet, 50 MG PO TID PRN for ANXIETY, (Reported) MAY TAKE A SECOND TABLET FOR EACH DOSE IF NEEDED Allergies Coded Allergies: Cephalosporins (Verified Allergy, Intermediate, HIVES, 09/18/18) Animal Dander (Verified Allergy, Unknown, 09/11/18) ENVIROMENTAL (Verified Allergy, Unknown, 09/11/18) PORFIRIO REA DO Apr 04, 2019 9:17 am
== END 2019-04-04 12:15 | disposition home or self-care (01) | DRG 756 ==
LOC: M ED 20:35 → M ED INP 03-29 00:23 → M PSY 03-29 03:04
PROVIDERS: ADMIT Psychiatry & Neurology Psychiatry; ATTEND Psychiatry & Neurology Psychiatry
DX: F41.0 Panic disorder [episodic paroxysmal anxiety] (principal); Z88.8 Allergy status to other drugs, medicaments and biological substances

== ENCOUNTER 2020-10-19 10:45 | Inpatient (IN) | payer BC ==
[~2020-10-19] VITALS: Ht 180.3 cm; Wt 77.7 kg
[~2020-10-19 10:45] MED LIST changes: +ABIL1TAB11 PO; +HYDR50TA70; +HYDR50TA70 PO; +MIRT-62 PO; +QUET25TA3; +QUET25TA3 PO; +TRAZ-257 PO; +VENL75CA47 PO
[2020-10-19] MEDS ORDERED: BUSP15TA47 PO ×2 (12:40→12:55)
[2020-10-19] MEDS ORDERED: ARIP1TAB6 PO (12:55)
[2020-10-19] MEDS ORDERED: MIRT-62 PO (12:55)
[2020-10-19] MEDS ORDERED: OMEGCAP4 PO (12:57)
[2020-10-19] MEDS ORDERED: VITMTA PO (12:57)
[2020-10-19] MEDS ORDERED: MELA5CAP2 PO (12:57)
[2020-10-19] MEDS ORDERED: HOME MED LIST COMPLETE! XX SCH (13:00)
[2020-10-19 13:22] LABS: HEMATOCRIT 49.6 % (42.0-52.0); HEMOGLOBIN 16.8 g/dl (13.5-17.5); MEAN CORPUSCULAR HEMOGLOBIN 28.5 pg (27.0-33.0); MEAN CORPUSCULAR HGB CONC 33.9 g/dl (32.0-36.5); MEAN CORPUSCULAR VOLUME 84.2 fl (80.0-96.0); PLATELET COUNT, AUTOMATED 276 10^3/uL (150-450); RED BLOOD COUNT 5.89 10^6/uL (4.30-6.10); WHITE BLOOD COUNT 6.3 10^3/uL (4.0-10.0)
[2020-10-19 13:45] LABS: AMPHETAMINES LEVEL URINE NEGATIVE (NEGATIVE); BARBITURATES URINE NEGATIVE (NEGATIVE); BENZODIAZEPINES URINE NEGATIVE (NEGATIVE); CANNABINOIDS URINE NEGATIVE (NEGATIVE); COCAINE METABOLITE URINE NEGATIVE (NEGATIVE); METHADONE URINE NEGATIVE (NEGATIVE); OPIATES URINE NEGATIVE (NEGATIVE); PHENCYCLIDINE URINE NEGATIVE (NEGATIVE)
[2020-10-19 13:58] LABS: ACETAMINOPHEN LEVEL < 2.0 UG/ML (10.0-30.0); ALT/SGPT 23 U/L (12-78); BILIRUBIN,DIRECT 0.2 MG/DL (0.0-0.2); BILIRUBIN,TOTAL 0.8 MG/DL (0.2-1.0); BLOOD UREA NITROGEN 14 MG/DL (7-18); CALCIUM LEVEL 9.7 MG/DL (8.5-10.1); CARBON DIOXIDE LEVEL 29 MEQ/L (21-32); CHLORIDE LEVEL 104 MEQ/L (98-107); CREATININE FOR GFR 1.08 MG/DL (0.70-1.30); ETHYL ALCOHOL (ETHANOL) < 0.003 % (0.000-0.010); GLOMERULAR FILTRATION RATE > 60.0 (>60); GLUCOSE, FASTING 96 MG/DL (70-100); POTASSIUM SERUM 3.6 MEQ/L (3.5-5.1); SALICYLATE LEVEL < 1.7 MG/DL (5.0-30.0); SODIUM LEVEL 141 MEQ/L (136-145); TOTAL PROTEIN 8.4 GM/DL (6.4-8.2)
[2020-10-19 14:02] LABS: RSV AMPLIFICATION NEGATIVE (NEGATIVE)
[2020-10-19] MEDS ORDERED: MAALOX 30 ML SUSP *UDC PO PRN (16:50)
[2020-10-19] MEDS ORDERED: ACETAMINOPHEN TAB 650MG DOSE (2X325MG) PO PRN (16:50)
[2020-10-19] MEDS ORDERED: MOM 30ML SUSPENSION UDC PO PRN (16:50)
[2020-10-19 19:01] VITALS: BP 110/80
[2020-10-19 19:33] VITALS: BP 130/68
[2020-10-19] MEDS: MIRTAZAPINE 15 MG TAB PO SCH (21:34)
[2020-10-19] MEDS: busPIRone 5 MG TAB PO SCH (21:34)
[2020-10-20 07:26] VITALS: BP 99/51
[2020-10-20] MEDS: MULTIVITAMINS/MINERALS THERAP 1 TAB PO SCH (08:28)
[2020-10-20] MEDS: busPIRone 5 MG TAB PO SCH ×2 (08:28→21:16)
[2020-10-20] MEDS: OMEGA-3 1000MG CAPSULE PO SCH (11:18)
--- NOTE | 2020-10-20 14:14 | MHHPEPDOC ---
General Date Of Admission: Oct 19, 2020 Legal Status: 9.39 Chief Complaint "I was seeing a new therapist and said that I had thoughts in the past about killing myself." History of Present Illness HISTORY OF THE PRESENT ILLNESS: Patient is a 25 -year-old Single, Employed, , male, who was sent to the ED after he had asked a question about suicidality which triggered further evaluation. He states that "there was a miscommunication with the therapist. Basically she had asked about suicidal thoughts and I had suicidal thoughts a couple of weeks ago, and this is where there was miscommunication. I was here in Mar 2019 for suicidal and intent and plan, I checked myself in, she asked me the plan and I said that my plan will probably the same as in March but I had no intent to harm myself then or no. I didn't have an intent, I said that was my last plan. I wasn't clear and there w as no time to clear it up." He denies that he has any intent to self-harm. His last plan of self harm was to use a gun. Patient has no guns that he owns but has access to his father's guns. Parent was called about this revelation.. Patient initially does not want his father called regarding this, he states "My Father is not supportive with regards to mental illness." Patient states that he became very frustrated with himself and overwhelmed with regards to a thesis project that he needs to finish but can't states that he has been struggling to finish it because he has OCD and perfectionism. Reports that his regular therapist is out on maternity leave and that the therapist assessing was not his usual therapist. PER ED REPORT: [facility] by Bhavya Edgar after pt. met with therapist (Josi Del Angel) today. Pt reportedly expressed vague SI & when therapist asked about a plan, pt. allegedly replied, "I have easy access to my parent's guns." Pt states, "this was a big misunderstanding, I don't want to kill myself now." He reports speaking with his therapist today while at his appt and she questioned him regarding suicidal thoughts? Pt admits he responded, "yes" and reported about having easy access to his parent's guns. He adamantly denies intent or plan currently, reports his last suicidal thought was 2 wks. ago with no specific plan. He believes his therapist misunderstood what he was trying to say, but does identify specific suicidal stressors (2 wks. ago) as being very anxious about returning to school. States he will be in his last year at [employer] and majoring in [employer]. He reports feeling increasingly distressed about having to write his final thesis, but denies SI currently. Spoke to pt.s therapist for collateral information and therapist's reports pt.s explanation is not true and feels he is minimizing to avoid hospitalization. According to pt.s therapist (Mer Prater, [phone]) she admits pt. expressed vague SI during her session today and when he was asked how he would complete suicide, pt. stated "I have easy access to my parent's guns." Therapist asked pt. if she could contact parents to secure the guns, however he refused. Spoke to pt.s GF (Guerita, ) who reports also having concerns regarding pt.s safety. She admits pt. is extremely anxious about completing his final year at [employer]. She believes his increase anxiety triggers his depression to worsen and as a result, he thinks about suicide. At this time, she is requesting hospitalization to ensure his safety. Psychiatric Review of Systems Depression (2 or more weeks): depressed mood (is not continuous but mostly was on one day when he was perseverating about his thesis/project), difficulty concentrating, suicidal thoughts, other (anxiety is all the time, ) Lucia (4 or more days of): denies Psychosis: denies PTSD: denies Anxiety: gen/non-specific anxiety, stressor related anxiety, panic attacks Anxiety/ 6 months or more of: restlessness, keyed up, easily fatigued, difficulty concentrating, sleep disturbance Past Psychiatric History Previous Psychiatric Diagnosis: Generalized Anxiety, OCD, Unspecified Depressive Disorder Previous Psychiatric Admissions: 3rd total hospitalization on this occurrence last hospitalization March 2019 Suicide Attempts: history of cutting, no gestures or attempts Psychiatric Follow-up: [facility] Psychiatric medications: Abilify 5 mg, Buspar 15 mg BID, Mirtzapine 15 mg for sleep. Trialed on Prozac Zoloft Effexor Vybrid Past Medical History Medical Problems No contributory medical conditions Head Injury: No Seizures: No Hospitalizations: Yes Surgeries: Yes (Septoplasty and nasal surgery) Family Medical/Psychiatric HX Medical Problems Mom - Thyroid Dad - Cardiac Psychiatric Disorders: No Addiction: Yes (Dad - ETOH) Suicide Attemps/Completions: No Addiction History denies Social History Childhood: Born in [place], describes his childhood "hugh" I feel that i had a lot of privileges that I can't take for granted. Despite my parents shortcomings, they are good. They fall short on the mental health but supportive otherwise. An older brother, he is an senior property accountant Abuse/Trauma: Father drank ETOH and was belligerent Current Living Situation: lives with girlfriend and two dogs Education: Almost a Bachelor's degree Employment: [employer]) Social Support: Girlfriend Legal: None Marital: Single, Never , No children Mental Status Examination General Appearance: well groomed, appears stated age, hospital scubs/clothing Build: thin Demeanor: average Eye Contact: average Activity: average Behavior: cooperative Speech: clear Mood: depressed (mild), anxious Affect: full Thought Content (Delusions): none reported, denies SI, HI, AVH Thought Content (Other): none reported Thought Content (Aggressive): none reported Perception (Hallucinations): none reported Perception (Other): none reported Cognition(Intelligence Est.): above average Oriented: Awake, Alert, Oriented times three Insight: fair Judgment: Fair Psychosis: Denies Diagnoses Unspecified Depressive Disorder Generalized Anxiety Disorder A-FIB/CHADSVASC A-FIB History Current/History of A-Fib/PAF?: No Current PO Anticoag Therapy: No Assessment Patient is a 25 -year-old Single, Employed, , male, who was sent to the ED after he had asked a question about suicidality which triggered further evaluation. He states that "there was a miscommunication with the therapist. He reports mild depressive symptoms and denies current depression or abnormal psychotic symptoms. He has a history of strong suicidal ideation with intent but denies that intent on this occasion. States that much of his frustration and anxiety stems from his procrastination of a Bachelor's project that he cannot get back to because of his OCD and perfectionism. He states that he does not own guns but that he does have access to guns because his father has guns. Mother was called regarding the safety and elevated risk. Patient initially did not want his parents involved and was reluctant to sign ENA but reinforced with patient that without his parents being alerted to his brief suicidal ideation that this would delay his discharge tomorrow. He states, "My father is not very supportive of mental illness and things like that. They are the best parents but not with this. " Patient was very forthcoming and engaged in the interview, denies current depression or suicidal thinking and denies any planning or intent. He will be discharged tomorrow. Initial Treatment Plan 1. Patient was admitted on a [9.39] status. 2. Complete history was obtained. 3. With patients permission, family will be contacted and database will be expanded. 4. Patients medication regimen will be reviewed and changed accordingly. 5. Patient will be provided with protected environment. 6. Patient will be treated with individual, group, and milieu therapies. 7. Patient will receive supportive psych-education. 8. Discharge planning will commence immediately. 9. Outpatient follow-up treatment will be strongly recommended. 10. The initial treatment plan will focus initially on: * Depression. * Risk for suicide. ESTIMATED LENGTH OF STAY: 1-3 DAYS. TIME SPENT COUNSELING AND COORDINATING INITIAL CARE: 60 minutes N/A-No Antipsychotics Vital Signs Vital Signs Date Time Temp Pulse Resp B/P (MAP) Pulse Ox O2 Delivery O2 Flow Rate FiO2 10/20/20 07:26 97.9 65 14 99/51 (67) 98 Room Air Laboratory Data 24H Labs Laboratory Tests 2 10/19/20 12:49: Nucleated Red Blood Cells % (auto) 0.0, Anion Gap 8, Glomerular Filtration Rate > 60.0, Calcium Level 9.7, Total Bilirubin 0.8, Direct Bilirubin 0.2, Aspartate Amino Transf (AST/SGOT) 19, Alanine Aminotransferase (ALT/SGPT) 23, Alkaline Phosphatase 63, Total Protein 8.4H, Albumin 5.0, Albumin/Globulin Ratio 1.5, Thyroid Stimulating Hormone (TSH) 2.620, Salicylates Level < 1.7L, Urine Opiates Screen NEGATIVE, Urine Methadone Screen NEGATIVE, Acetaminophen Level < 2.0L, Urine Barbiturates Screen NEGATIVE, Urine Phencyclidine Screen NEGATIVE, Urine Amphetamines Screen NEGATIVE, Urine Benzodiazepines Screen NEGATIVE, Urine Cocaine Metabolite Screen NEGATIVE, Urine Cannabinoids Screen NEGATIVE, Ethyl Alcohol Level < 0.003, Coronavirus (COVID-19)(PCR) NEGATIVE, Influenza Type A (RT-PCR) NEGATIVE, Influenza Type B (RT-PCR) NEGATIVE, Respiratory Syncytial Virus (PCR) NEGATIVE CBC/BMP Laboratory Tests 10/19/20 12:49 Medications Scheduled Aripiprazole (Aripiprazole) 5 Mg Tablet, 5 MG PO DAILY, (Reported) Buspirone HCl (Buspirone HCl) 15 Mg Tablet, 15 MG PO BID, (Reported) Melatonin (Melatonin) 5 Mg Capsule, 5 MG PO QHS, (Reported) Mirtazapine (Remeron) 15 Mg Tablet, 15 MG PO QHS, (Reported) Multivitamins (Thera M Plus Tablet) 1 Each Tablet, 1 TAB PO DAILY, (Reported) [place]-3/Dha/Epa/Fish Oil ([place]-3 Fish Oil 1,000 mg Sfgl) 1,000 Mg Capsule, 1,000 MG PO DAILY, (Reported) Allergies Coded Allergies: Cephalosporins (Verified Allergy, Intermediate, HIVES, 09/18/18) Animal Dander (Verified Allergy, Unknown, 09/11/18) ENVIROMENTAL (Verified Allergy, Unknown, 09/11/18) PETEY HENSON NP Oct 20, 2020 12:04
[2020-10-20 17:15] VITALS: BP 128/63
[2020-10-20] MEDS: MIRTAZAPINE 15 MG TAB PO SCH (21:16)
[2020-10-21 06:16] VITALS: BP 102/57
[2020-10-21] MEDS: MULTIVITAMINS/MINERALS THERAP 1 TAB PO SCH (08:03)
[2020-10-21] MEDS: busPIRone 5 MG TAB PO SCH (08:03)
[2020-10-21] MEDS: OMEGA-3 1000MG CAPSULE PO SCH (08:03)
--- NOTE | 2020-10-21 10:47 | MHDSPDOC ---
[facility] Discharge Summary Discharge Summary DATE OF ADMISSION: Oct 19, 2020 at 16:50 DATE OF DISCHARGE: October 21, 2020 at 1040 DISCHARGE DIAGNOSES: Unspecified Depressive Disorder Generalized Anxiety Disorder. REASON FOR ADMISSION: Patient is a 25 -year-old Single, Employed, , male, who was sent to the ED after he had asked a question about suicidality which triggered further evaluation. He states that "there was a miscommun ication with the therapist. Basically she had asked about suicidal thoughts and I had suicidal thoughts a couple of weeks ago, and this is where there was miscommunication. I was here in Mar 2019 for suicidal and intent and plan, I checked myself in, she asked me the plan and I said that my plan will probably the same as in March but I had no intent to harm myself then or now. I didn't have an intent, I said that was my last plan. I wasn't clear and there was no time to clear it up." He denies that he has any intent to self-harm. His last plan of self-harm (on his last admission) was to use a gun. Patient has no guns that he owns but has access to his father's guns. Parent was called about this revelation. Patient initially does not want his father called regarding this, he states "My Father is not supportive with regards to mental illness." Patient states that he became very frustrated with himself and overwhelmed with a thesis project that he needs to finish but can't states that he has been strug gling to finish it because he has OCD and perfectionism. Reports that his regular therapist is out on maternity leave and that the therapist assessing was not his usual therapist. PER ED REPORT: Pt was brought to [facility] ED by [facility] on a 9.45 issued by Bhavya Edgar after pt. met with therapist (Josi Del Angel) today. Pt reportedly expressed vague SI & when therapist asked about a plan, pt. allegedly replied, "I have easy access to my parent's guns." Pt states, "this was a big misunderstanding, I don't want to kill myself now." He reports speaking with his therapist today while at his appt and she questioned him regarding suicidal thoughts? Pt admits he responded, "yes" and reported about having easy access to his parent's guns. He adamantly denies intent or plan currently, reports his last suicidal thought was 2 wks. ago with no specific plan. He believes his therapist misunderstood what he was trying to say, but does identify specific suicidal stressors (2 wks. ago) as being very anxious about returning to school. States he will be in his last year at [employer] and majoring in Manaltoation. He reports feeling increasingly distressed about having to write his final thesis, but denies SI currently. Spoke to pt.s therapist for collateral information and therapist's reports pt.s explanation is not true and feels he is minimizing to avoid hospitalization. According to pt.s therapist (Mer Prater, [phone]) she admits pt. expressed vague SI during her session today and when he was asked how he would complete suicide, pt. stated "I have easy access to my parent's guns." Therapist asked pt. if she could contact parents to secure the guns, however he refused. Spoke to pt.s GF (Guerita, ) who reports also having concerns regarding pt.s safety. She admits pt. is extremely anxious about completing his final year at [employer]. She believes his increase anxiety triggers his depression to worsen and as a result, he thinks about suicide. At this time, she is requesting hospitalization to ensure his safety. VITAL SIGNS: See below. CONSULTANTS INVOLVED: See Medical H + P by Hospitalist TREATMENT AND PROGRESS ON THE UNIT: Patient was admitted to the [facility] on a 9.39 legal status he was afforded the following treatment modalities: 1) Individual Therapy 2) Group Therapy 3) Medication Management 4) Milieu Therapy 5) Safe Environment HOSPITAL COURSE: Patient was admitted to [facility] on a 9.39 legal status. Patient is a 25 -year-old Single, Employed, , male, who was sent to the ED after he had asked a question about suicidality which triggered further evaluation. He states that "there was a miscommunication with the therapist. He reports mild depressive symptoms and denies current depression or abnormal psychotic symptoms. He has a history of strong suicidal ideation with intent but denies that intent on this occasion. States that much of his frustration and anxiety stems from his procrastination of a Bachelor's project that he cannot get back to because of his OCD and perfectionism. He states that he does not own guns but that he does have access to guns because his father has guns. Mother was called regarding the safety and elevated risk. Pt was resumed on his home medications, states that they are beneficial and he has tolerated them well. Mood, anxiety, and intrusive thoughts improved with his short treatment. Pt attended groups daily during stay. He was social in the milieu and with his peers. Pts symptoms improved with treatment. On this day of discharge he denied depression, anxiety, insomnia, SI/HI, hallucinations, delusions. Pt was discharged home with follow to [facility]. Pt felt safe for discharge. DISCHARGE ASSESSMENT: In today's interview, patient is alert and oriented, pts dress is appropriate. Hygiene and grooming is well-kempt. Smiles on approach and is pleasant and engaged in the interview. Denies depression and anxiety. Denies suicidal and homicidal ideation, planning or intent. Denies and is not observed with robin, psychotic symptoms of delusions, bizarre thinking, obsessions, paranoia, ruminations illogical thoughts, flight of ideas or having poor insight and judgement. Patient has normal mentation, declines further hospitalization on a voluntary status and meets criteria for discharge today. MENTAL STATUS EXAMINATION ON DISCHARGE: Patient is a 25 -year-old Single, Employed, , male, who was sent to the ED after he had asked a question about suicidality which triggered further evaluation, he had fleeting suicidal ideation Speech: Is fluid, conversant, normal rate, tone and volume Language skills are intact Thought processes including: linear and goal oriented Thought content: denies depression and anxiety. Denies suicidal/homicidal ideation, planning or intent. Abstract reasoning, and computation: fair Description of associations: denies, none observed Description of abnormal or psychotic thoughts: denies, none observed. Judgment: fair Insight: fair Orientation: alert and oriented to person, place, time and situation Recent and remote memory: intact Attention span and concentration: good Language: expansive Fund of knowledge: average Mood: Euthymic Mood Affect: constricted MEDICATIONS ON DISCHARGE: See Medication Reconciliation PLAN/FOLLOWUP ARRANGEMENTS: [facility] The amount of time spent in the coordination of care for this patient was approximately 25 minutes. ETOH/Disorder Med Rx ETOH/DRUG DISORDER RX: N/A Vital Signs/I&Os Vital Signs Date Time Temp Pulse Resp B/P (MAP) Pulse Ox O2 Delivery O2 Flow Rate FiO2 10/21/20 06:16 98.2 64 16 102/57 (72) 100 Room Air Medications Scheduled Aripiprazole (Aripiprazole) 5 Mg Tablet, 5 MG PO DAILY, (Reported) Buspirone HCl (Buspirone HCl) 15 Mg Tablet, 15 MG PO BID, (Reported) Melatonin (Melatonin) 5 Mg Capsule, 5 MG PO QHS, (Reported) Mirtazapine (Remeron) 15 Mg Tablet, 15 MG PO QHS, (Reported) Multivitamins (Thera M Plus Tablet) 1 Each Tablet, 1 TAB PO DAILY, (Reported) [place]-3/Dha/Epa/Fish Oil ([place]-3 Fish Oil 1,000 mg Sfgl) 1,000 Mg Capsule, 1,000 MG PO DAILY, (Reported) Allergies Coded Allergies: Cephalosporins (Verified Allergy, Intermediate, HIVES, 09/18/18) Animal Dander (Verified Allergy, Unknown, 09/11/18) ENVIROMENTAL (Verified Allergy, Unknown, 09/11/18) PETEY HENSON NP Oct 21, 2020 10:47
== END 2020-10-21 11:42 | disposition home or self-care (01) | DRG 754 ==
LOC: M ED 10:45 → M ED INP 16:50 → M PSY 18:23
PROVIDERS: ADMIT Psychiatry & Neurology Psychiatry; ATTEND Psychiatry & Neurology Psychiatry
DX: F32.9 Major depressive disorder, single episode, unspecified (principal); F41.9 Anxiety disorder, unspecified; Z79.899 Other long term (current) drug therapy; Z20.822 Contact with and (suspected) exposure to COVID-19; Z88.8 Allergy status to other drugs, medicaments and biological substances